=== PATIENT | female | born 1975 | race Hispanic/Latino ===

== ENCOUNTER 2017-09-04 08:14 | Emergency (ER) | payer SELFPAY ==
[2017-09-04] MEDS ORDERED: NORCO 5/325 PO ONE (10:16)
[2017-09-04] MEDS ORDERED: TORADOL IM ONE (10:17)
--- NOTE | 2017-09-04 10:17 | Emergency Department Report ---
ED Back Pain/Injury HPI - General Chief Complaint: Back Pain/Injury Stated Complaint: BACK PAIN Time Seen by Provider: 09/04/17 10:08 Source: patient Limitations: No Limitations - History of Present Illness Initial Comments: 41-year-old female past medical history anemia, scoliosis, left elbow tendinitis presents with complaint of acute on chronic back pain. Denies saddle paresthesias denies bladder or bowel incontinence. Patient is ambulatory without assistance. No nausea no vomiting no fever no chills. No dysuria no increased urinary frequency. Patient denies any lower extremity paresthesias. Pain is currently 7 out of 10. Worse with bending. Denies any falls or direct trauma. Also complaining of chronic left elbow pain from tendinitis. MD Complaint: back pain Onset/Timin -: days(s) Place: home, work Severity: moderate Severity scale (0 -10): 6 Quality: dull, aching Consistency: constant Improves With: supine Worsens With: movement Context: while lifting, turning/twisting, bending Associated Symptoms: denies other symptoms - Related Data Previous Rx's Medication Instructions Recorded Last Taken Type Cyclobenzaprine [Flexeril] 10 mg PO TID PRN #14 tablet 09/04/17 Unknown Rx Naproxen 500 mg PO BID PRN #30 tablet 09/04/17 Unknown Rx Allergies Allergy/AdvReac Type Severity Reaction Status Date / Time No Known Allergies Allergy Unverified 05/02/15 11:29 ED Review of Systems ROS: Stated complaint: BACK PAIN Other details as noted in HPI Constitutional: denies: chills, fever Eyes: denies: eye pain, eye discharge, vision change ENT: denies: ear pain, throat pain Respiratory: denies: cough, shortness of breath, wheezing Cardiovascular: denies: chest pain, palpitations Endocrine: no symptoms reported Gastrointestinal: denies: abdominal pain, nausea, diarrhea Genitourinary: denies: urgency, dysuria, discharge Musculoskeletal: as per HPI. denies: back pain, joint swelling, arthralgia Skin: denies: rash, lesions Neurological: denies: headache, weakness, paresthesias Psychiatric: denies: anxiety, depression Hematological/Lymphatic: denies: easy bleeding, easy bruising ED Past Medical Hx - Past Medical History Previous Medical History?: Yes Hx Arthritis: Yes Additional medical history: anemic, Scoliosis, Tendonitis in left elbow - Surgical History Past Surgical History?: Yes Additional Surgical History: , left rotator cuff , cervical neck fusion - Social History Smoking Status: Current Every Day Smoker Substance Use Type: Alcohol, Marijuana - Medications Home Medications: Home Medications Medication Instructions Recorded Confirmed Last Taken Type Cyclobenzaprine [Flexeril] 10 mg PO TID PRN #14 tablet 09/04/17 Unknown Rx Naproxen 500 mg PO BID PRN #30 tablet 09/04/17 Unknown Rx ED Physical Exam - General Limitations: No Limitations General appearance: alert, in no apparent distress - Head Head exam: Present: atraumatic, normocephalic - Eye Eye exam: Present: normal appearance, PERRL, EOMI - ENT ENT exam: Present: mucous membranes moist - Neck Neck exam: Present: normal inspection - Respiratory Respiratory exam: Present: normal lung sounds bilaterally. Absent: respiratory distress - Cardiovascular Cardiovascular Exam: Present: regular rate, normal rhythm. Absent: systolic murmur, diastolic murmur, rubs, gallop - GI/Abdominal GI/Abdominal exam: Present: soft (abdomen soft nontender nondistended), normal bowel sounds - Extremities Exam Extremities exam: Present: normal inspection - Expanded Upper Extremity Exam Left Shoulder Exam: Present: normal inspection, full ROM Upper Arm exam: Present: normal inspection, full ROM Elbow exam: Present: normal inspection, full ROM (elbow flexion and extension intact) Forearm Wrist exam: Present: normal inspection, full ROM Hand Wrist exam: Present: normal inspection, full ROM Neurosensory exam: Present: radial nerve intact, ulnar nerve intact, median nerve intact Vascular: Present: normal capillary refill - Back Exam Back exam: Present: normal inspection, full ROM (flexion and extension and lateral rotation intact but uncomfortable. There is no CVA tenderness. No midline tenderness cervical thoracic lumbar spine) - Neurological Exam Neurological exam: Present: alert, oriented X3, CN II-XII intact, normal gait - Expanded Neurological Exam Expanded Patient oriented to: Present: person, place, time Cranial nerves: EOM's Intact: Normal, Facial Sensation: Normal Cerebellar function: Finger to Nose: Normal, Heel to Short: Normal, Romberg: Normal Sensory exam: Upper Extremity Light Touch: Normal, Lower Extremity Light Touch: Normal Motor strength exam: RUE: 5, LUE: 5, RLE: 5, LLE: 5 Best Eye Response ([place]): (4) open spontaneously Best Motor Response (Rain): (6) obeys commands Best Verbal Response (Rain): (5) oriented Rain Total: 15 - Psychiatric Psychiatric exam: Present: normal affect, normal mood - Skin Skin exam: Present: warm, dry, intact, normal color. Absent: rash ED Course Vital Signs 09/04/17 08:20 Temperature 98.1 F Pulse Rate 84 Respiratory 16 Rate Blood Pressure 118/75 O2 Sat by Pulse 99 Oximetry ED Medical Decision Making - Medical Decision Making A/P: Acute on chronic lower back pain 1-naproxen, Flexeril when necessary 2-follow-up with primary care and orthopedics 3-strength 5 out of 5 bilateral lower extremities. Patient is ambulatory. No reports of bladder or bowel incontinence. X-ray consistent with scoliosis. Advised patient to follow up with an processing specialist and gave her referrals. 4- vital signs stable for discharge. Urinalysis unremarkable. Critical care attestation.: If time is entered above; I have spent that time in minutes in the direct care of this critically ill patient, excluding procedure time. ED Disposition Clinical Impression: Elbow tendonitis Scoliosis Qualifiers: Scoliosis type: unspecified scoliosis Spinal region: lumbar Qualified Code(s): M41.9 - Scoliosis, unspecified Back pain Qualifiers: Back pain location: low back pain Chronicity: acute Back pain laterality: bilateral Sciatica presence: without sciatica Qualified Code(s): M54.5 - Low back pain Disposition: - TO HOME OR SELFCARE Is pt being admited?: No Does the pt Need Aspirin: No Condition: Stable Instructions: Tendinitis (ED), Acute Low Back Pain (ED), Back Pain (ED), Chronic Back Pain (ED) Prescriptions: Cyclobenzaprine [Flexeril] 10 mg PO TID PRN #14 tablet PRN Reason: Muscle Spasm Naproxen 500 mg PO BID PRN #30 tablet PRN Reason: Pain Referrals: [facility] [Provider Group] - 3-5 Days RIVERA WILKES MD [Staff Physician] - 3-5 Days Forms: Work/School Release Form(ED) Time of Disposition: 11:48
[2017-09-04 10:31] LABS: Bilirubin,Urine NEG (Negative); Blood,Urine SM (Negative); Ketones,Urine NEG (Negative); Leukocyte Esterase,Urine NEG (Negative); Nitrite,Urine NEG (Negative); Protein,Urine <15 mg/dL mg/dL (Negative); Urobilinogen,Urine < 2.0 mg/dL (<2.0); WBC,Urine < 1.0 /HPF (0.0-6.0)
[2017-09-04] MEDS ORDERED: TORADOL ONE (10:55)
--- NOTE | 2017-09-04 10:56 | XRay Report ---
LUMBAR SPINE RADIOGRAPHS: INDICATION: Lower back pain. Worsening scoliosis. COMPARISON: None similar at this institution. FINDINGS: AP and lateral lumbar spine radiographs demonstrate preserved vertebral body stature and disc heights. Slight levoscoliosis apex about L3. Nonobstructive bowel gas pattern. Normal bilateral SI joints. Clear visualized lung bases. Some clothing artifacts. CONCLUSION: No acute lumbar radiographic abnormality, as described. Thank you for the opportunity to participate in this patient's care.
[2017-09-04 12:07] VITALS: BP 120/75
== END 2017-09-04 12:08 | disposition home or self-care (01) ==
LOC: ED 08:14
DX: M54.5 Low back pain (principal); M41.9 Scoliosis, unspecified; M77.9 Enthesopathy, unspecified; M19.90 Unspecified osteoarthritis, unspecified site; F12.10 Cannabis abuse, uncomplicated; F17.200 Nicotine dependence, unspecified, uncomplicated; Z98.890 Other specified postprocedural states
CPT/HCPCS: 72100; 81001; 81025; 96372; 99284; J1885